=== PATIENT | female | born 1995 | race Caucasian/White ===

== ENCOUNTER 2023-11-30 11:38 | Observation (INO) ==
[2023-11-30 12:01] VITALS: BMI 41.3
--- NOTE | 2023-11-30 12:44 | DR.NAUSEAF ---
HPI Time Seen Time Seen by Provider: 11/30/23 12:42 Primary Care Physician Primary Care Physician: Matt Complaints Chief Complaint Doctors Comments: This patient complaining of nausea and vomiting she was seen in the [facility] yesterday and in [facility] yesterday and was discharged. Patient complaining today that she is having some midsternal ch est pain she states that she does have a history of CHF her informal waiter/waitress is Dr. Minor and her primary care from there is Matt. This patient has not followed up with either of those physicians. Chief Complaint:: Pt c/o n/v that started yesterday; she has been seen in [facility] ER and [facility] yesterday but states she is "not leaving until I get some answers today; I want to be admitted". Pt states she cannot hold down any fluids. C/o midsternal chest pain and "I think I have flooded out my heart"; when asked what she means by that, she states she has left VFD w/ repair, Dr. Serrano is her informal waiter/waitress. She has not called her PCP or her informal waiter/waitress today COVID-19 Coronavirus risk:travel/contact w/high risk person: No Has patient experienced Coronavirus symptoms: No Source History Provided: Patient Mode of Arrival Mode of Arrival: EMS Timing Onset of Chief Complaint: 11/29/23 PMH PMH Past Medical History: Yes Past Medical History: Anxiety and CHF Past Medical History Comment: chronic neck and back pain, bipolar Past Surgical History: Yes Surgical History: CABG/Valve Surgery, Ortho Surgery and Other Past Surgical History Comment: spinal fusion, VSD repair Family History History of Family Medical Conditions: Yes Family Medical History: Diabetes Mellitus, Cancer and Hypertension Social History Does patient currently use any type of tobacco product: No Have you used tobacco products in the last 12 months: No Type of Tobacco Use: None Does any household member use tobacco: No Alcohol Use: None Do you use any recreational Drugs:: No Lives With: Spouse Lives Where: Home Travel Risk Coronavirus risk:travel/contact w/high risk person: No Has patient experienced Coronavirus symptoms: No Infectious screening In the last 2 months have you had wt loss of >10#?: NO Have you had fever, night sweats or hemotysis?: No Have you traveled outside the country in the last 6 months?: No Isolation: Contact ROS Review of Systems Constitutional: Other (Nausea and vomiting and midsternal chest pain for 2 days she has a history of CHF she was seen to hospital yesterday for similar symptoms.) Eyes: No Symptoms Reported ENTM: No Symptoms Reported Respiratoy: No Symptoms Reported Cardiovascular: Chest Pain Gastrointestinal/Abdominal: Nausea and Vomiting Genitourinary: No Symptoms Reported Neurological: No Symptoms Reported Musculoskeletal: No Symptoms Reported Integumentary: No Symptoms Reported Hematologic/Lymphatic: No Symptoms Reported Endocrine: No Symptoms Reported Psychiatric: No Symptoms Reported PE Vital Signs Vitals: Vital Signs Temperature 99.4 F Pulse Rate 86 Pulse Rate 84 Pulse Rate 71 Pulse Rate 73 Pulse Rate 84 Pulse Rate 84 Pulse Rate 78 Pulse Rate 80 Pulse Rate 83 Pulse Rate 83 Pulse Rate 65 Pulse Rate 68 Pulse Rate 80 Pulse Rate 84 Pulse Rate 65 Pulse Rate 79 Pulse Rate 65 Pulse Rate 67 Pulse Rate 65 Pulse Rate 71 Respiratory Rate 31 Respiratory Rate 33 Respiratory Rate 28 Respiratory Rate 20 Respiratory Rate 30 Respiratory Rate 28 Respiratory Rate 28 Respiratory Rate 18 Respiratory Rate 17 Respiratory Rate 26 Respiratory Rate 27 Respiratory Rate 28 Respiratory Rate 36 Respiratory Rate 30 Respiratory Rate 36 Respiratory Rate 20 Respiratory Rate 24 Respiratory Rate 23 Respiratory Rate 17 Respiratory Rate 15 Respiratory Rate 22 Blood Pressure 127/82 Blood Pressure 127/58 Blood Pressure 136/79 Blood Pressure 136/79 Blood Pressure 136/79 Blood Pressure 132/67 Blood Pressure 121/72 Blood Pressure 131/76 Blood Pressure 134/65 Blood Pressure 142/68 Blood Pressure 141/70 O2 Sat by Pulse Oximetry 99 O2 Sat by Pulse Oximetry 98 O2 Sat by Pulse Oximetry 97 O2 Sat by Pulse Oximetry 95 O2 Sat by Pulse Oximetry 94 O2 Sat by Pulse Oximetry 94 O2 Sat by Pulse Oximetry 100 O2 Sat by Pulse Oximetry 98 O2 Sat by Pulse Oximetry 98 O2 Sat by Pulse Oximetry 95 O2 Sat by Pulse Oximetry 98 O2 Sat by Pulse Oximetry 99 O2 Sat by Pulse Oximetry 98 O2 Sat by Pulse Oximetry 100 O2 Sat by Pulse Oximetry 100 O2 Sat by Pulse Oximetry 98 O2 Sat by Pulse Oximetry 99 O2 Sat by Pulse Oximetry 100 O2 Sat by Pulse Oximetry 100 General Limitations: No Limitations General Appearance: Lethargic and In Distress (moderate distress) Head Head Exam: Normal Inspection, Atraumatic and Normocephalic Respiratory Respiratory Exam: Bilateral: Clear to Auscultation Cardiovascular Cardiovascular Exam: Regular Rate and Normal Rhythm Abdominal Exam Abdominal Exam: Normal Inspection, Soft and Hyperactive Bowel Sounds Rectal Rectal Exam: Deferred Extremities Extremities Exam: Normal Inspection and Full ROM Back Back Exam: Normal Inspection and Full ROM Neurologic Neurological Exam: Alert and CN II-XII Intact Psychiatric Psychiatric Exam: Agitated and Anxious Skin Skin Exam: Warm, Dry and Intact MDM Differential Diagnosis Differential Diagnosis: Considerations may Include:: Gastroenteritis and Other (Dehydration, intractable nausea and vomiting, congestive heart failure) COURSE Treatment Treatment: This patient remained relatively stable during the ER visit. We had to give her Zofran 4 mg IV for her nausea vomiting that did not do she also got a IM shot of Phenergan 25 mg for nausea that seem to help for a little while the patient further evaluation we did do a cardiac workup on this patient her BNP was only 5.1 EKG was normal sinus rhythm troponin was 9.9 we did do a chest x- ray was negative for any intrathoracic abnormality and we did a metabolic panel which her sodium was like 3 GFR was greater than 60 CBC was within normal range. This patient still had intractable nausea and vomiting here so we did give her Compazine 10 mg IV with some relief of her nausea and vomiting. We did contact Dr. Gutierrez that was on-call and gave this information about this patient and he stated we could admit her for intractable nausea and vomiting high pole kalemia. We did call the utilization review and they said we could put in for observation. The patient's family members and the patient was told of the intent and they was agreeable to the intent. For the hypokalemia the patient was started on an IV of normal saline with 10 mill equivalents of potassium going at 80 cc an hour ROR Labs Reviewed Laboratory Results Reviewed?: Yes 11/30/23 12:55 11/30/23 12:55 Laboratory: WBC 9.3 X10^3/uL (3.6-10.0) 11/30/23 12:55 RBC 4.26 X10^6/uL (3.5-5.4) 11/30/23 12:55 Hgb 12.7 g/dL (12.0-16.0) 11/30/23 12:55 Hct 36.9 % (36.0-47.0) 11/30/23 12:55 MCV 86.4 fL (80.0-100.0) 11/30/23 12:55 MCH 29.8 pg (27.0-34.0) 11/30/23 12:55 MCHC 34.5 g/dL (33.0-35.0) 11/30/23 12:55 RDW 13.6 % (11.6-16.5) 11/30/23 12:55 Plt Count 321 X10^3/uL (150.0-450.0) 11/30/23 12:55 MPV 7.3 fL (7.4-11.0) L 11/30/23 12:55 Neut % (Auto) 82.0 % (42.0-75.0) H 11/30/23 12:55 Lymph % (Auto) 7.7 % (21.0-51.0) L 11/30/23 12:55 [place] % (Auto) 9.8 % (0.0-13.0) 11/30/23 12:55 Eos % (Auto) 0.0 % (0.9-2.9) L 11/30/23 12:55 Baso % (Auto) 0.5 % (0.2-1.0) 11/30/23 12:55 Neut # (Auto) 7.6 x10^3/uL (2.2-4.8) H 11/30/23 12:55 Lymph # (Auto) 0.7 X10^3/uL (1.3-2.9) L 11/30/23 12:55 [place] # (Auto) 0.9 x10^3/uL (0.3-0.8) H 11/30/23 12:55 Eos # (Auto) 0.0 x10^3/uL (0.0-0.2) 11/30/23 12:55 Baso # (Auto) 0.0 X10^3/uL (0.0-0.1) 11/30/23 12:55 Absolute Nucleated RBC 0.0 /100WBC 11/30/23 12:55 Sodium 144 mmol/L (136-145) 11/30/23 12:55 Corrected Sodium 144 mmol/L (136-145) 11/30/23 12:55 Potassium 3.0 mmol/L (3.5-5.1) L 11/30/23 12:55 Chloride 104 mmol/L (98-107) 11/30/23 12:55 Carbon Dioxide 25.3 mmol/L (21-32) 11/30/23 12:55 BUN 16 mg/dL (7-18) 11/30/23 12:55 Creatinine 1.01 mg/dL (0.55-1.02) 11/30/23 12:55 Est GFR (MDRD) Af Amer > 60 (>60) 11/30/23 12:55 Est GFR (MDRD) Non-Af > 60 (>60) 11/30/23 12:55 Glucose 111 mg/dL (65-99) H 11/30/23 12:55 Calcium 9.1 mg/dL (8.5-10.1) 11/30/23 12:55 Corrected Calcium TNP 11/30/23 12:55 Total Bilirubin 1.80 mg/dL (0.2-1.0) H 11/30/23 12:55 AST 18 Units/L (15-37) 11/30/23 12:55 ALT 31 Units/L (12-78) 11/30/23 12:55 Alkaline Phosphatase 61 Units/L (46-116) 11/30/23 12:55 Creatine Kinase 130 Units/L (26-192) 11/30/23 12:55 Troponin I High Sens 9.9 ng/L (4.0-60.0) 11/30/23 12:55 B-Natriuretic Peptide 5.1 pg/mL (0-79) 11/30/23 12:55 Total Protein 7.6 g/dL (6.4-8.2) 11/30/23 12:55 Albumin 4.6 g/dL (3.4-5.0) 11/30/23 12:55 Globulin 3.0 g/dL (2.5-4.5) 11/30/23 12:55 Albumin/Globulin Ratio 1.5 Ratio (1.1-2.1) 11/30/23 12:55 Opioid Opioid Risk Tool Age (Javier box if 16-45): Yes History of Preadolescent Sexual Abuse: No Total: 1 Total Score Risk Category: Low Risk Copyright: Efrain CUENCA predicting aberrant behaviors Discharge Plan Diagnosis Discharge Problem: Dehydration, Intractable nausea and vomiting, Hypokalemia, Atypical chest pain Discharge Plan Patient Disposition: 09 ADMITTED INPATIENT Condition: Stable Orders to Discharge Patient Discharge Orders: Transfer (Routine); Ordered 10/25/24 Ordered By: Kehinde Mckeon
[2023-11-30] MEDS: PROTONIX INJ 40 MG VIAL IVP ONE (13:02)
[2023-11-30] MEDS: ZOFRAN INJ 4 MG VIAL IVP ONE (13:02)
--- NOTE | 2023-11-30 13:02 | EKG ---
Test Reason : chest pain Blood Pressure : */* mmHG Vent. Rate : 69 BPM Atrial Rate : 69 BPM P-R Int : 142 ms QRS Dur : 134 ms QT Int : 452 ms P-R-T Axes : 15 20 3 degrees QTc Int : 484 ms Normal sinus rhythm Right bundle branch block T wave abnormality, consider anterior ischemia Abnormal ECG When compared with ECG of 05-JUL-2022 10:58, Minimal criteria for Anterior infarct are no longer present T wave inversion more evident in Anterior leads Confirmed by Carson Zuniga MD ([id number]) on 12/01/2023 6:42:06 AM Referred By: Confirmed By: Carson Zuniga MD
[2023-11-30 13:05] LABS: BASOPHILS % (AUTO) 0.5 % (0.2-1.0); HEMATOCRIT 36.9 % (36.0-47.0); HEMOGLOBIN 12.7 g/dL (12.0-16.0); LYMPHOCYTES # (AUTO) 0.7 X10^3/uL (1.3-2.9); LYMPHOCYTES % (AUTO) 7.7 % (21.0-51.0); MEAN CORPUSCULAR HEMOGLOBIN 29.8 pg (27.0-34.0); MEAN CORPUSCULAR HGB CONC 34.5 g/dL (33.0-35.0); MEAN CORPUSCULAR VOLUME 86.4 fL (80.0-100.0); MEAN PLATELET VOLUME 7.3 fL (7.4-11.0); MONOCYTES # (AUTO) 0.9 x10^3/uL (0.3-0.8); MONOCYTES % (AUTO) 9.8 % (0.0-13.0); NEUTROPHILS # (AUTO) 7.6 x10^3/uL (2.2-4.8); PLATELET COUNT 321 X10^3/uL (150.0-450.0); RED BLOOD COUNT 4.26 X10^6/uL (3.5-5.4); RED CELL DISTRIBUTION WIDTH 13.6 % (11.6-16.5); WHITE BLOOD COUNT 9.3 X10^3/uL (3.6-10.0)
[2023-11-30 13:18] LABS: ALANINE AMINOTRANSFERASE 31 Units/L (12-78); ALBUMIN 4.6 g/dL (3.4-5.0); ALKALINE PHOSPHATASE 61 Units/L (46-116); ASPARTATE AMINO TRANSFERASE 18 Units/L (15-37); BLOOD UREA NITROGEN 16 mg/dL (7-18); CALCIUM 9.1 mg/dL (8.5-10.1); CARBON DIOXIDE 25.3 mmol/L (21-32); CHLORIDE 104 mmol/L (98-107); COR NA(FOR HYPERGLY) 144 mmol/L (136-145); CREATINE KINASE 130 Units/L (26-192); CREATININE 1.01 mg/dL (0.55-1.02); GLUCOSE 111 mg/dL (65-99); SODIUM 144 mmol/L (136-145); TOTAL PROTEIN 7.6 g/dL (6.4-8.2); eGFR NON BLACK RACES > 60 (>60)
--- NOTE | 2023-11-30 13:49 | RAD ---
EXAM:CHEST, 1 VIEWHISTORY:chest pain; TUBALCOMPARISON:Prior study or studies were utilized for comparison during interpretation with the most relevant dated 08/21/2022TECHNIQUE:CHEST, 1 VIEWFINDINGS:Chest:Lines and tubes: Cardiac leads overlie the chest.Mediastinum: Cardiac and mediastinal shadow is within normal limits for size and contour.Pulmonary vessels: No pulmonary vascular congestion.Lung wilkins: No suspicious airspace opacity.Pleura: No effusion. No pneumothorax.Bones and soft tissues: No acute osseous or soft tissue abnormality.IMPRESSION:1. No acute cardiopulmonary abnormalityTHIS IS AN ELECTRONICALLY VERIFIED FINAL [id number]/30/2023 1:45 PM - Electronically signed by Дмитрий Dominguez MD
[2023-11-30] MEDS: PHENERGAN INJ 25 MG IM ONE ×2 (13:59→17:40)
[2023-11-30] MEDS: NS + KCL 20 MEQ/L 1,000 ML IV SCH (15:04)
[2023-11-30] MEDS: COMPAZINE INJ IVP ONE (15:41)
[2023-11-30] MEDS: PROTONIX INJ 40 MG VIAL ONE (17:40)
[2023-11-30] MEDS: ZOFRAN INJ 4 MG VIAL ONE (17:40)
[2023-11-30] MEDS: COMPAZINE INJ ONE (17:41)
[2023-11-30] MEDS: COMPAZINE INJ IVP SCH (19:16)
[2023-11-30] MEDS: SEROquel TAB 25 mg PO PRN (19:33)
[2023-11-30] MEDS: LUMATEPERONE 42 MG PO SCH (19:36)
[2023-11-30] MEDS: COMPAZINE INJ IM PRN (19:57)
[2023-12-01] MEDS: AMBIEN PO PRN (00:10)
[2023-12-01 05:03] LABS: BASOPHILS % (AUTO) 0.5 % (0.2-1.0); EOSINOPHILS % (AUTO) 0.1 % (0.9-2.9); HEMATOCRIT 34.6 % (36.0-47.0); HEMOGLOBIN 11.7 g/dL (12.0-16.0); LYMPHOCYTES # (AUTO) 1.2 X10^3/uL (1.3-2.9); LYMPHOCYTES % (AUTO) 13.5 % (21.0-51.0); MEAN CORPUSCULAR HEMOGLOBIN 29.6 pg (27.0-34.0); MEAN CORPUSCULAR HGB CONC 33.9 g/dL (33.0-35.0); MEAN CORPUSCULAR VOLUME 87.2 fL (80.0-100.0); MEAN PLATELET VOLUME 7.6 fL (7.4-11.0); MONOCYTES % (AUTO) 11.4 % (0.0-13.0); NEUTROPHILS # (AUTO) 6.4 x10^3/uL (2.2-4.8); NEUTROPHILS % (AUTO) 74.5 % (42.0-75.0); PLATELET COUNT 276 X10^3/uL (150.0-450.0); RED BLOOD COUNT 3.96 X10^6/uL (3.5-5.4); RED CELL DISTRIBUTION WIDTH 13.9 % (11.6-16.5); WHITE BLOOD COUNT 8.6 X10^3/uL (3.6-10.0)
[2023-12-01 05:13] LABS: ALANINE AMINOTRANSFERASE 25 Units/L (12-78); ALKALINE PHOSPHATASE 51 Units/L (46-116); ASPARTATE AMINO TRANSFERASE 14 Units/L (15-37); BLOOD UREA NITROGEN 16 mg/dL (7-18); CALCIUM 8.5 mg/dL (8.5-10.1); CARBON DIOXIDE 24.8 mmol/L (21-32); CHLORIDE 109 mmol/L (98-107); CREATININE 0.95 mg/dL (0.55-1.02); GLUCOSE 89 mg/dL (65-99); MAGNESIUM 1.8 mg/dL (2.0-2.9); POTASSIUM 3.2 mmol/L (3.5-5.1); SODIUM 147 mmol/L (136-145); TOTAL PROTEIN 6.7 g/dL (6.4-8.2); eGFR NON BLACK RACES > 60 (>60)
[2023-12-01] MEDS ORDERED: CONSULT PHARMACY - POTASSIUM & MAGNESIUM XX SCH (06:00)
--- NOTE | 2023-12-01 07:45 | EKG ---
Test Reason : Chest pain Blood Pressure : */* mmHG Vent. Rate : 72 BPM Atrial Rate : 72 BPM P-R Int : 116 ms QRS Dur : 140 ms QT Int : 456 ms P-R-T Axes : -4 6 4 degrees QTc Int : 499 ms Normal sinus rhythm with sinus arrhythmia Right bundle branch block T wave abnormality, consider anterolateral ischemia Abnormal ECG When compared with ECG of 30-NOV-2023 12:47, T wave inversion now evident in Lateral leads Confirmed by Carson Zuniga MD ([id number]) on 12/02/2023 6:10:50 AM Referred By: Confirmed By: Carson Zuniga MD
[2023-12-01] MEDS: ZOLOFT PO SCH (08:07)
[2023-12-01 08:47] VITALS: RESP 20
[2023-12-01] MEDS ORDERED: MAG-OX TAB PO SCH (09:00)
[2023-12-01] MEDS ORDERED: K-DUR TAB 20 MEQ PO SCH (09:00)
[2023-12-01] MEDS: NS + KCL 20 MEQ/L 1,000 ML with MAGNESIUM SULFATE 50% INJ VIAL 1 G IV SCH (09:08)
[2023-12-01] MEDS: MORPHINE SULFATE INJ 2 MG INJ IVP PRN (09:10)
[2023-12-01 13:57] VITALS: BP 164/78; PULSE 68; TEMP 98.5; O2SAT 96
--- NOTE | 2023-12-05 13:22 | DR.SSS ---
SHORT STAY SUMMARY Admission Date Date of Admission: 11/30/23 Discharge Date Discharge Date: 12/01/23 Admission Diagnoses Admission Diagnoses: Nausea/vomitting Dehydration Chest pain rule out Hypokalemia Discharge Diagnoses Discharge Diagnoses: Nausea vomiting Dehydration Hypokalemia GERD Chief Complaint Chief Complaint: Nausea/vomiting, chest pain History of Present Illness History of Present Illness: Ms. Krishnamurthy is a 28-year-old female with a past medical history of chronic pain, anxiety, depression, insomnia, CAD, CHF presented with worsening nausea/vomiting along with chest pain. ER workup showed hypokalemia, troponin negative, chest x-ray negative. She was started on antiemetics and potassium replacement. She was admitted for further monitoring. Past Medical History Past Medical History: Anxiety, CHF and Depression Past Surgical History Surgical History: CABG/Valve Surgery and Ortho Surgery Allergies Allergies Allergy/AdvReac Type Severity Reaction Status Date / Time penicillin G Allergy Unknown Verified 12/03/23 11:43 Penicillins Allergy Verified 12/03/23 11:43 Medications Home Medications: penicillin G Allergy (Unknown, Verified 12/03/23 11:43) Penicillins Allergy (Verified 12/03/23 11:43) Family History Family Medical History: Diabetes Mellitus and Hypertension Social History Does patient currently use any type of tobacco product: No Have you used tobacco products in the last 12 months: No Type of Tobacco Use: None Does any household member use tobacco: No Alcohol Use: None Drug Use: None Review of Systems Constitutional: Weakness Eyes: No Symptoms Reported ENT: No Symptoms Reported Respiratory: No Symptoms Reported Cardiovascular: Chest Pain Gastrointestinal: Nausea and Vomiting Genitourinary: No Symptoms Reported Musculoskeletal: No Symptoms Reported Skin: No Symptoms Reported Neurological: No Symptoms Reported Physical Exam Vital Signs: Last Vital Signs Temp 98.5 F 12/01/23 12:00 Pulse 68 12/01/23 12:00 Resp 20 12/01/23 12:00 BP 164/78 12/01/23 12:00 Pulse Ox 96 12/01/23 12:00 O2 Del Method Room Air 12/01/23 12:00 O2 Flow Rate 2 12/01/23 08:00 FiO2 28 11/30/23 20:24 Oriented: Normal Throat: Normal Respiratory: Clear Throughout Cardiovascular: Normal Auscultation: Bowel Sounds: Normal Palpation: Normal Tenderness: Normal Skin: Normal Musculoskeletal: Normal Psychiatric: Anxiety Mood Description: Calm Affect: Normal Speech Pattern: Clear and Appropriate Labs Labs: Laboratory Last Values WBC 8.6 X10^3/uL (3.6-10.0) 12/01/23 04:31 RBC 3.96 X10^6/uL (3.5-5.4) 12/01/23 04:31 Hgb 11.7 g/dL (12.0-16.0) L 12/01/23 04:31 Hct 34.6 % (36.0-47.0) L 12/01/23 04:31 MCV 87.2 fL (80.0-100.0) 12/01/23 04:31 MCH 29.6 pg (27.0-34.0) 12/01/23 04:31 MCHC 33.9 g/dL (33.0-35.0) 12/01/23 04:31 RDW 13.9 % (11.6-16.5) 12/01/23 04:31 Plt Count 276 X10^3/uL (150.0-450.0) 12/01/23 04:31 MPV 7.6 fL (7.4-11.0) 12/01/23 04:31 Neut % (Auto) 74.5 % (42.0-75.0) 12/01/23 04:31 Lymph % (Auto) 13.5 % (21.0-51.0) L 12/01/23 04:31 [place] % (Auto) 11.4 % (0.0-13.0) 12/01/23 04:31 Eos % (Auto) 0.1 % (0.9-2.9) L 12/01/23 04:31 Baso % (Auto) 0.5 % (0.2-1.0) 12/01/23 04:31 Neut # (Auto) 6.4 x10^3/uL (2.2-4.8) H 12/01/23 04:31 Lymph # (Auto) 1.2 X10^3/uL (1.3-2.9) L 12/01/23 04:31 [place] # (Auto) 1.0 x10^3/uL (0.3-0.8) H 12/01/23 04:31 Eos # (Auto) 0.0 x10^3/uL (0.0-0.2) 12/01/23 04:31 Baso # (Auto) 0.0 X10^3/uL (0.0-0.1) 12/01/23 04:31 Absolute Nucleated RBC 0.1 /100WBC 12/01/23 04:31 Sodium 147 mmol/L (136-145) H 12/01/23 04:31 Corrected Sodium TNP 12/01/23 04:31 Potassium 3.2 mmol/L (3.5-5.1) L 12/01/23 04:31 Chloride 109 mmol/L (98-107) H 12/01/23 04:31 Carbon Dioxide 24.8 mmol/L (21-32) 12/01/23 04:31 BUN 16 mg/dL (7-18) 12/01/23 04:31 Creatinine 0.95 mg/dL (0.55-1.02) 12/01/23 04:31 Est GFR (MDRD) Af Amer > 60 (>60) 12/01/23 04:31 Est GFR (MDRD) Non-Af > 60 (>60) 12/01/23 04:31 Glucose 89 mg/dL (65-99) 12/01/23 04:31 Calcium 8.5 mg/dL (8.5-10.1) 12/01/23 04:31 Corrected Calcium TNP 12/01/23 04:31 Magnesium 1.8 mg/dL (2.0-2.9) L 12/01/23 04:31 Total Bilirubin 1.60 mg/dL (0.2-1.0) H 12/01/23 04:31 AST 14 Units/L (15-37) L 12/01/23 04:31 ALT 25 Units/L (12-78) 12/01/23 04:31 Alkaline Phosphatase 51 Units/L (46-116) 12/01/23 04:31 Creatine Kinase 130 Units/L (26-192) 11/30/23 12:55 Troponin I High Sens 9.4 ng/L (4.0-60.0) 12/01/23 07:49 B-Natriuretic Peptide 5.1 pg/mL (0-79) 11/30/23 12:55 Total Protein 6.7 g/dL (6.4-8.2) 12/01/23 04:31 Albumin 4.0 g/dL (3.4-5.0) 12/01/23 04:31 Globulin 2.7 g/dL (2.5-4.5) 12/01/23 04:31 Albumin/Globulin Ratio 1.5 Ratio (1.1-2.1) 12/01/23 04:31 Hospital Course Hospital Course: Patient was observed overnight on telemetry. She was feeling better with fluids and antiemetics. She denied any chest pain the following day. Her labs were monitored daily and electrolytes replaced as needed. Patient did not have any further episodes of vomiting. She was able to tolerate p.o. intake. She reports having EGD in the past and diagnosed with H. pylori. She has not followed up with Dr. Kirkland. Advised patient to follow-up with Dr. Kirkland. She was stable to be discharged home. She will follow-up with PCP as scheduled Discharge Medications Discharge Medications: Prescriptions: Discharge Disposition Discharge Disposition: To home Discharge Plan Discharge Plan Patient Disposition: 01 HOME, SELF-CARE Condition: Stable Health Concerns: Post Hospitalization: new medications and changes needed to prevent readmission or further decline. Pt educated and given instructions on all concerns. Plan of Treatment: Continue with present treatment and follow up plan. Pt is to keep follow up appointment as instructed and take medications as ordered. Prescription drug monitoring program results: PDMP reviewed and no concerns identified Prescriptions: No Action methocarbamol 500 mg tablet 500 mg PO QDAY PRN (Reason: muscle spasm) promethazine 12.5 mg tablet 12.5 mg PO Q6H PRN hydrocodone-acetaminophen 10-325 mg tablet 1 tab PO QDAY PRN lorazepam 0.5 mg tablet 0.5 mg PO Q12H PRN divalproex 500 mg tablet extended release 24 hr 500 mg PO BID sertraline 25 mg tablet 25 mg PO QDAY ondansetron 4 mg tablet,disintegrating 4 mg PO Q8H PRN (Reason: nausea/vomiting) quetiapine 50 mg tablet 75 mg PO QPM PRN baclofen 5 mg tablet 5 mg PO QDAY Caplyta 42 mg capsule 42 mg PO QPM Orders to Discharge Patient Discharge Orders: Discharge (Routine); Ordered 12/01/23 Ordered By: Cristela Vazquez Follow ups/Referrals Follow ups/Referrals: Matt,Watson, MD [Primary Care Provider] - 1 WEEK Instructions Instructions: Ondansetron tablets, Hypokalemia, Nausea and Vomiting, Adult, [id number], Dehydration, Adult, [id number], Promethazine tablets, [place] Diet Activity Restrictions/Additional Instructions: Follow up with Dr. Gutierrez in 1 week. Liquid diet and advance to a bland diet as tolerated. Stand Alone Forms: Excuse From Work or School, Post Hospital Follow Up Care
== END 2023-12-01 13:59 | disposition home or self-care (01) ==
LOC: ER 11:38 → MED/SURG 11:38
PROVIDERS: ADMIT Family Medicine; ATTEND Family Medicine
DX: E86.0 Dehydration; R94.31 Abnormal electrocardiogram [ECG] [EKG]; F41.8 Other specified anxiety disorders; E87.6 Hypokalemia; R07.89 Other chest pain; I25.10 Atherosclerotic heart disease of native coronary artery without angina pectoris; K21.9 Gastro-esophageal reflux disease without esophagitis; R11.2 Nausea with vomiting, unspecified

== ENCOUNTER 2023-12-04 09:54 | Observation (INO) ==
[2023-12-04] MEDS: NS 500 ML IV 500 ML IV ONE (10:57)
[2023-12-04 11:17] LABS: ALANINE AMINOTRANSFERASE 17 Units/L (12-78); ALBUMIN 4.2 g/dL (3.4-5.0); ALKALINE PHOSPHATASE 53 Units/L (46-116); ASPARTATE AMINO TRANSFERASE 12 Units/L (15-37); BLOOD UREA NITROGEN 11 mg/dL (7-18); CALCIUM 8.4 mg/dL (8.5-10.1); CARBON DIOXIDE 25.6 mmol/L (21-32); CHLORIDE 104 mmol/L (98-107); CREATININE 0.91 mg/dL (0.55-1.02); GLUCOSE 77 mg/dL (65-99); MAGNESIUM 1.6 mg/dL (2.0-2.9); SODIUM 143 mmol/L (136-145); TOTAL PROTEIN 6.9 g/dL (6.4-8.2); eGFR NON BLACK RACES > 60 (>60)
[2023-12-04] MEDS: K-RIDER 10 MEQ/100 ML WATER 10 MEQ/100 ML BAG IV ONE (11:31)
[2023-12-04] MEDS: NS 250 ML IV 25 ML IV PRN (11:31)
[2023-12-04] MEDS: TORADOL 30 MG VIAL IVP ONE (11:38)
[2023-12-04] MEDS: CONSULT PHARMACY - POTASSIUM & MAGNESIUM XX SCH (11:42)
--- NOTE | 2023-12-04 11:43 | DR.NAUSEAF ---
HPI Time Seen Time Seen by Provider: 12/04/23 11:32 Primary Care Physician Primary Care Physician: Matt HPI Comment HPI Comment: Patient states she was seen by her PCP today after being evaluated in the emergency room yesterday for nausea and vomiting. Patient states she has been able to keep nothing down and has been throwing up more since she left the doctor's office. Patient states they plan to have her see the surgeon next week but does not feel like she will be able to make it that far. Patient states her abdominal discomfort has gotten worse. Patient states the abdominal discomfort is generalized and worse when she throws up. Complaints Chief Complaint:: Patient states she was seen by her PCP today after being evaluated in ED yesterday for NV and hypoklemia. She reports she has continued to have nausea with "dry heaving" and unable to keep medications down. She said she was sent here by her PCP's [employer] COVID-19 Coronavirus risk:travel/contact w/high risk person: No Has patient experienced Coronavirus symptoms: No Source History Provided: Patient Mode of Arrival Mode of Arrival: Ambulatory Timing Onset of Chief Complaint: 11/29/23 PMH PMH Past Medical History: Yes Past Medical History: Anxiety, CHF and Depression Past Surgical History: Yes Surgical History: CABG/Valve Surgery and Ortho Surgery Family History History of Family Medical Conditions: Yes Family Medical History: Diabetes Mellitus, Cancer and Hypertension Social History Does patient currently use any type of tobacco product: No Have you used tobacco products in the last 12 months: No Type of Tobacco Use: None Does any household member use tobacco: No Alcohol Use: None Do you use any recreational Drugs:: No Lives With: Spouse Lives Where: Home Travel Risk Coronavirus risk:travel/contact w/high risk person: No Has patient experienced Coronavirus symptoms: No Infectious screening In the last 2 months have you had wt loss of >10#?: NO Have you had fever, night sweats or hemotysis?: No Have you traveled outside the country in the last 6 months?: No Isolation: Standard ROS Review of Systems Constitutional: No Symptoms Reported Eyes: No Symptoms Reported ENTM: No Symptoms Reported Respiratoy: No Symptoms Reported Cardiovascular: No Symptoms Reported Gastrointestinal/Abdominal: See HPI Genitourinary: No Symptoms Reported Neurological: No Symptoms Reported Musculoskeletal: No Symptoms Reported Integumentary: No Symptoms Reported Hematologic/Lymphatic: No Symptoms Reported Endocrine: No Symptoms Reported Psychiatric: No Symptoms Reported All Other Systems: Reviewed and Negative PE Vital Signs Vitals: Vital Signs Temperature 98.2 F Pulse Rate 85 Respiratory Rate 18 Respiratory Rate 16 Blood Pressure 136/73 Blood Pressure 144/85 O2 Sat by Pulse Oximetry 100 General Limitations: No Limitations General Appearance: Alert and In No Apparent Distress Head Head Exam: Normal Inspection Eyes Eye exam: Normal Appearance ENT ENT Exam: Normal Exam Neck Neck Exam: Normal Inspection Chest Chest Inspection: Normal Inspection Respiratory Respiratory Exam: Normal Lung Sounds Bilat Respiratory Exam: Bilateral: Clear to Auscultation Cardiovascular Cardiovascular Exam: Regular Rate and Normal Rhythm Abdominal Exam Abdominal Exam: Normal Inspection, Normal Bowel Sounds, Soft and Tenderness; negative Guarding, Rebound or Rigidity Abdominal Tenderness: Diffuse Rectal Rectal Exam: Deferred External Exam: Female: Deferred : Speculum Exam (Female): Deferred : Bimanual Exam (female): Deferred Extremities Extremities Exam: Normal Inspection Back Back Exam: Normal Inspection Neurologic Neurological Exam: Alert and Oriented X3 Psychiatric Psychiatric Exam: Normal Affect and Normal Mood Skin Skin Exam: Warm, Dry, Intact and Normal Color ROR Labs Reviewed 12/04/23 10:57 12/04/23 10:57 Laboratory: Sodium 143 mmol/L (136-145) 12/04/23 10:57 Corrected Sodium TNP 12/04/23 10:57 Potassium 2.8 mmol/L (3.5-5.1) L* 12/04/23 10:57 Chloride 104 mmol/L (98-107) 12/04/23 10:57 Carbon Dioxide 25.6 mmol/L (21-32) 12/04/23 10:57 BUN 11 mg/dL (7-18) 12/04/23 10:57 Creatinine 0.91 mg/dL (0.55-1.02) 12/04/23 10:57 Est GFR (MDRD) Af Amer > 60 (>60) 12/04/23 10:57 Est GFR (MDRD) Non-Af > 60 (>60) 12/04/23 10:57 Glucose 77 mg/dL (65-99) 12/04/23 10:57 Calcium 8.4 mg/dL (8.5-10.1) L 12/04/23 10:57 Corrected Calcium TNP 12/04/23 10:57 Magnesium 1.6 mg/dL (2.0-2.9) L 12/04/23 10:57 Total Bilirubin 2.30 mg/dL (0.2-1.0) H 12/04/23 10:57 AST 12 Units/L (15-37) L 12/04/23 10:57 ALT 17 Units/L (12-78) 12/04/23 10:57 Alkaline Phosphatase 53 Units/L (46-116) 12/04/23 10:57 Total Protein 6.9 g/dL (6.4-8.2) 12/04/23 10:57 Albumin 4.2 g/dL (3.4-5.0) 12/04/23 10:57 Globulin 2.7 g/dL (2.5-4.5) 12/04/23 10:57 Albumin/Globulin Ratio 1.6 Ratio (1.1-2.1) 12/04/23 10:57 Opioid Opioid Risk Tool Age (Javier box if 16-45): Yes History of Preadolescent Sexual Abuse: No Total: 1 Total Score Risk Category: Low Risk Copyright: Efrain CUENCA predicting aberrant behaviors Discharge Plan Diagnosis Discharge Problem: Intractable vomiting with nausea, Hypokalemia, Hypomagnesemia Discharge Plan Patient Disposition: 09 ADMITTED INPATIENT Condition: Stable Prescriptions: No Action methocarbamol 500 mg tablet 500 mg PO QDAY PRN (Reason: muscle spasm) promethazine 12.5 mg tablet 12.5 mg PO Q6H PRN hydrocodone-acetaminophen 10-325 mg tablet 1 tab PO QDAY PRN lorazepam 0.5 mg tablet 0.5 mg PO Q12H PRN divalproex 500 mg tablet extended release 24 hr 500 mg PO BID sertraline 25 mg tablet 25 mg PO QDAY ondansetron 4 mg tablet,disintegrating 4 mg PO Q8H PRN (Reason: nausea/vomiting) quetiapine 50 mg tablet 75 mg PO QPM PRN baclofen 5 mg tablet 5 mg PO QDAY Caplyta 42 mg capsule 42 mg PO QPM Health Concerns: Post Hospitalization: new medications and changes needed to prevent readmission or further decline. Pt educated and given instructions on all concerns. Plan of Treatment: Continue with present treatment and follow up plan. Pt is to keep follow up appointment as instructed and take medications as ordered. Orders to Discharge Patient Discharge Orders: Transfer (Routine); Ordered 12/04/23 Ordered By: Long Beck Follow ups/Referrals Follow ups/Referrals: Watson Gutierrez MD [Primary Care Provider] - 3 days Instructions Stand Alone Forms: Post Hospital Follow Up Care
[2023-12-04] MEDS ORDERED: PEPCID TAB 20 MG PO PRN (11:44)
[2023-12-04 11:50] LABS: BASOPHILS # (AUTO) 0.1 X10^3/uL (0.0-0.1); BASOPHILS % (AUTO) 0.6 % (0.2-1.0); EOSINOPHILS % (AUTO) 0.1 % (0.9-2.9); HEMATOCRIT 35.6 % (36.0-47.0); HEMOGLOBIN 12.6 g/dL (12.0-16.0); LYMPHOCYTES # (AUTO) 0.7 X10^3/uL (1.3-2.9); LYMPHOCYTES % (AUTO) 7.7 % (21.0-51.0); MEAN CORPUSCULAR HEMOGLOBIN 30.2 pg (27.0-34.0); MEAN CORPUSCULAR HGB CONC 35.3 g/dL (33.0-35.0); MEAN CORPUSCULAR VOLUME 85.7 fL (80.0-100.0); MEAN PLATELET VOLUME 7.9 fL (7.4-11.0); MONOCYTES # (AUTO) 0.6 x10^3/uL (0.3-0.8); MONOCYTES % (AUTO) 6.9 % (0.0-13.0); NEUTROPHILS # (AUTO) 7.9 x10^3/uL (2.2-4.8); NEUTROPHILS % (AUTO) 84.7 % (42.0-75.0); PLATELET COUNT 280 X10^3/uL (150.0-450.0); RED BLOOD COUNT 4.15 X10^6/uL (3.5-5.4); RED CELL DISTRIBUTION WIDTH 13.7 % (11.6-16.5); WHITE BLOOD COUNT 9.3 X10^3/uL (3.6-10.0)
[2023-12-04 12:04] LABS: AMYLASE 27 Units/L (25-115); LIPASE 26 Units/L (16-77)
[2023-12-04] MEDS: ZOFRAN INJ 4 MG VIAL IVP PRN (12:53)
[2023-12-04 14:43] LABS: POTASSIUM 2.8 mmol/L (3.5-5.1)
[2023-12-04] MEDS: PROTONIX INJ 40 MG VIAL IVP SCH (15:34)
[2023-12-04] MEDS: MORPHINE SULFATE INJ 4 MG IVP PRN (15:35)
[2023-12-04] MEDS: POTASSIUM CHLORIDE IV NR (15:39)
[2023-12-04] MEDS: SODIUM CHLORIDE IV NR (15:39)
[2023-12-04] MEDS: MAGNESIUM SULFATE 1 GRAM/100 mL PREMIX 1 G/100 ML BAG IV SCH (15:40)
[2023-12-04] MEDS: D5 1/2 NS 1,000 ML 1,000 ML IV ONE (15:40)
[2023-12-04] MEDS: D5 1/2 NS 1,000 ML 1,000 ML IV SCH (16:00)
[2023-12-04] MEDS: PHENERGAN INJ 25 MG IM PRN (18:46)
[2023-12-04 21:04] LABS: APPEARANCE,URINE HAZY (CLEAR); BILIRUBIN,URINE NEGATIVE (NEGATIVE); BLOOD/HEMOGLOBIN,URINE 1+ (NEGATIVE); COLOR,URINE DARK YELLOW (YELLOW); GLUCOSE, URINE NEGATIVE (NEGATIVE); KETONES,URINE 4+ (NEGATIVE); LEUKOCYTE ESTERASE ,URINE NEGATIVE (NEGATIVE); NITRITES,URINE POSITIVE (NEGATIVE); PROTEIN,URINE 2+ (NEGATIVE); UROBILINOGEN,URINE 2+ (NORMAL)
[2023-12-04 21:05] LABS: BACTERIA,URINE 3+ /HPF (NEGATIVE); RBC,URINE 0-2 /HPF (0-3); SQUAMOUS EPITHELIAL CELL,UR FEW /HPF (NEGATIVE); YEAST,URINE RARE /HPF (NEGATIVE)
[2023-12-05] MEDS: TORADOL 30 MG VIAL ONE (05:06)
--- NOTE | 2023-12-05 05:22 | EKG ---
Test Reason : Surgery Blood Pressure : */* mmHG Vent. Rate : 72 BPM Atrial Rate : 72 BPM P-R Int : 138 ms QRS Dur : 140 ms QT Int : 480 ms P-R-T Axes : 16 29 -13 degrees QTc Int : 525 ms Normal sinus rhythm Right bundle branch block Nonspecific T wave abnormality Abnormal ECG When compared with ECG of 03-DEC-2023 11:40, No significant change was found Confirmed by Carson Zuniga MD ([id number]) on 12/05/2023 7:38:22 AM Referred By: Confirmed By: Carson Zuniga MD
[2023-12-05 06:22] LABS: BASOPHILS % (AUTO) 0.6 % (0.2-1.0); EOSINOPHILS # (AUTO) 0.2 x10^3/uL (0.0-0.2); EOSINOPHILS % (AUTO) 2.7 % (0.9-2.9); HEMATOCRIT 33.1 % (36.0-47.0); HEMOGLOBIN 11.8 g/dL (12.0-16.0); LYMPHOCYTES # (AUTO) 0.9 X10^3/uL (1.3-2.9); LYMPHOCYTES % (AUTO) 14.1 % (21.0-51.0); MEAN CORPUSCULAR HEMOGLOBIN 30.6 pg (27.0-34.0); MEAN CORPUSCULAR HGB CONC 35.6 g/dL (33.0-35.0); MEAN CORPUSCULAR VOLUME 85.8 fL (80.0-100.0); MEAN PLATELET VOLUME 7.7 fL (7.4-11.0); MONOCYTES # (AUTO) 0.8 x10^3/uL (0.3-0.8); NEUTROPHILS # (AUTO) 4.5 x10^3/uL (2.2-4.8); NEUTROPHILS % (AUTO) 69.6 % (42.0-75.0); PLATELET COUNT 238 X10^3/uL (150.0-450.0); RED BLOOD COUNT 3.86 X10^6/uL (3.5-5.4); RED CELL DISTRIBUTION WIDTH 13.9 % (11.6-16.5); WHITE BLOOD COUNT 6.5 X10^3/uL (3.6-10.0)
[2023-12-05 06:46] LABS: ALANINE AMINOTRANSFERASE 14 Units/L (12-78); ALBUMIN 3.3 g/dL (3.4-5.0); ALKALINE PHOSPHATASE 42 Units/L (46-116); ASPARTATE AMINO TRANSFERASE 8 Units/L (15-37); BLOOD UREA NITROGEN 9 mg/dL (7-18); CALCIUM 7.9 mg/dL (8.5-10.1); CHLORIDE 106 mmol/L (98-107); COR CA(FOR HYPOALB) 8.5 mg/dL (8.5-10.1); CREATININE 0.87 mg/dL (0.55-1.02); GLUCOSE 106 mg/dL (65-99); SODIUM 144 mmol/L (136-145); TOTAL PROTEIN 5.7 g/dL (6.4-8.2); eGFR NON BLACK RACES > 60 (>60)
[2023-12-05] MEDS ORDERED: CONSULT PHARMACY - POTASSIUM & MAGNESIUM XX SCH (07:00)
[2023-12-05] MEDS: LR 1,000 ML IV 1,000 ML IV ONE (07:22)
--- NOTE | 2023-12-05 07:35 | RAD ---
EXAM: Portable chest HISTORY: Congestive heart failure, anxiety COMPARISON: 11/30/2023 FINDINGS: Heart is mildly enlarged. No congestive heart failure is noted. Claire are normal. Lung wilkins are clear. No pleural effusions or pneumothoraces identified. Bony thorax is unremarkable. IMPRESSION: Mild cardiomegaly without congestive heart failure Lungs clear THIS IS AN ELECTRONICALLY VERIFIED FINAL REPORT 12/05/2023 7:31 AM - Electronically signed by Tony Trinidad MD
[2023-12-05] MEDS ORDERED: POTASSIUM CHL 60 MEQ/NS 0.45% 500 ML *CMPD 60 MEQ/500 ML BAG IV NR (08:00)
[2023-12-05] MEDS: DIPRIVAN VIAL 20 ML ONE (08:10)
[2023-12-05] MEDS: XYLOCAINE 2 % (PLAIN) ONE (08:10)
--- NOTE | 2023-12-05 09:48 | DR.H&P ---
H&P History & Physical for Day of: H&P Date: 12/05/23 Chief Complaint Chief Complaint: worsening N/V, unable to tolerate PO intake History of Present Illness History of Present Illness: Ms Krishnamurthy is a 28y/o female with a PMH of GERD, H.Pylori gastritis, chronic pain syndrome, anxiety, depression and insomnia has had recurrent admissions and ER visits due to intractable N/V and chest pain. She was recently discharged but states she was not able to keep anything down. She was scheduled to see Dr Kirkland next week but could not wait so came to the ER for evaluation. ER work up showed low mag and K. She was started on IV fluids and electrolyte replacement. She was given anti-emetics and pain control. She was kept NPO and Dr Kirkland was consulted. Patient underwent EGD this morning, found to have gastritis. Labs/imaging reviewed: -WBC 6.5 Hgb 11.8 K 3.0 Mag 2.0 BUN/Cr 9/0.87 Trop (-) -CXR: cardiomegaly Plan: follow surgery recommendations, gallbladder US pending. Continue hydration, replace electrolytes. Continue anti-emetics. Continue protonix and carafate. Diet as per surgery. Resume home medications. Monitor AM labs/imaging. Past Medical History Past Medical History: Anxiety, CHF and Depression Past Surgical History Surgical History: CABG/Valve Surgery and Ortho Surgery Family History Family Medical History: Diabetes Mellitus and Hypertension Social History Does patient currently use any type of tobacco product: No Have you used tobacco products in the last 12 months: No Type of Tobacco Use: None Does any household member use tobacco: No Alcohol Use: None Drug Use: None Medications Home Medications: Home Medications Medication Instructions Recorded Confirmed Type baclofen 5 mg tablet 5 mg PO QDAY hiccoughs 12/04/23 12/04/23 History divalproex 500 mg tablet,extended 500 mg PO BID 12/04/23 12/04/23 History release 24 hr hydrocodone 10 mg-acetaminophen 1 tab PO QDAY PRN 12/04/23 12/04/23 History 325 mg tablet lorazepam 0.5 mg tablet 0.5 mg PO Q12H PRN 12/04/23 12/04/23 History lumateperone 42 mg capsule 42 mg PO QPM 12/04/23 12/04/23 History (Caplyta) methocarbamol 500 mg tablet 500 mg PO QDAY PRN muscle spasm 12/04/23 12/04/23 History ondansetron 4 mg disintegrating 4 mg PO Q8H PRN nausea/vomiting 12/04/23 12/04/23 History tablet promethazine 12.5 mg tablet 12.5 mg PO Q6H PRN 12/04/23 12/04/23 History quetiapine 50 mg tablet 75 mg PO QPM PRN 12/04/23 12/04/23 History sertraline 25 mg tablet 25 mg PO QDAY 12/04/23 12/04/23 History Allergies Allergies Allergy/AdvReac Type Severity Reaction Status Date / Time penicillin G Allergy Unknown Verified 12/03/23 11:43 Penicillins Allergy Verified 12/03/23 11:43 Labs 12/05/23 06:03 12/05/23 06:03 Labs: 12/04/23 20:35 Urine,Clean Catch Urine Culture - Preliminary Laboratory WBC 6.5 X10^3/uL (3.6-10.0) 12/05/23 06:03 RBC 3.86 X10^6/uL (3.5-5.4) 12/05/23 06:03 Hgb 11.8 g/dL (12.0-16.0) L 12/05/23 06:03 Hct 33.1 % (36.0-47.0) L 12/05/23 06:03 MCV 85.8 fL (80.0-100.0) 12/05/23 06:03 MCH 30.6 pg (27.0-34.0) 12/05/23 06:03 MCHC 35.6 g/dL (33.0-35.0) H 12/05/23 06:03 RDW 13.9 % (11.6-16.5) 12/05/23 06:03 Plt Count 238 X10^3/uL (150.0-450.0) 12/05/23 06:03 MPV 7.7 fL (7.4-11.0) 12/05/23 06:03 Neut % (Auto) 69.6 % (42.0-75.0) 12/05/23 06:03 Lymph % (Auto) 14.1 % (21.0-51.0) L 12/05/23 06:03 [place] % (Auto) 13.0 % (0.0-13.0) 12/05/23 06:03 Eos % (Auto) 2.7 % (0.9-2.9) 12/05/23 06:03 Baso % (Auto) 0.6 % (0.2-1.0) 12/05/23 06:03 Neut # (Auto) 4.5 x10^3/uL (2.2-4.8) 12/05/23 06:03 Lymph # (Auto) 0.9 X10^3/uL (1.3-2.9) L 12/05/23 06:03 [place] # (Auto) 0.8 x10^3/uL (0.3-0.8) 12/05/23 06:03 Eos # (Auto) 0.2 x10^3/uL (0.0-0.2) 12/05/23 06:03 Baso # (Auto) 0.0 X10^3/uL (0.0-0.1) 12/05/23 06:03 Absolute Nucleated RBC 0.0 /100WBC 12/05/23 06:03 Sodium 144 mmol/L (136-145) 12/05/23 06:03 Corrected Sodium TNP 12/05/23 06:03 Potassium 3.0 mmol/L (3.5-5.1) L 12/05/23 06:03 Chloride 106 mmol/L (98-107) 12/05/23 06:03 Carbon Dioxide 28.0 mmol/L (21-32) 12/05/23 06:03 BUN 9 mg/dL (7-18) 12/05/23 06:03 Creatinine 0.87 mg/dL (0.55-1.02) 12/05/23 06:03 Est GFR (MDRD) Af Amer > 60 (>60) 12/05/23 06:03 Est GFR (MDRD) Non-Af > 60 (>60) 12/05/23 06:03 Glucose 106 mg/dL (65-99) H 12/05/23 06:03 Calcium 7.9 mg/dL (8.5-10.1) L 12/05/23 06:03 Corrected Calcium 8.5 mg/dL (8.5-10.1) 12/05/23 06:03 Magnesium 2.0 mg/dL (2.0-2.9) 12/05/23 06:03 Total Bilirubin 1.50 mg/dL (0.2-1.0) H 12/05/23 06:03 AST 8 Units/L (15-37) L 12/05/23 06:03 ALT 14 Units/L (12-78) 12/05/23 06:03 Alkaline Phosphatase 42 Units/L (46-116) L 12/05/23 06:03 Total Protein 5.7 g/dL (6.4-8.2) L 12/05/23 06:03 Albumin 3.3 g/dL (3.4-5.0) L 12/05/23 06:03 Globulin 2.4 g/dL (2.5-4.5) L 12/05/23 06:03 Albumin/Globulin Ratio 1.4 Ratio (1.1-2.1) 12/05/23 06:03 Amylase 27 Units/L (25-115) 12/04/23 10:57 Lipase 26 Units/L (16-77) 12/04/23 10:57 Specimen Type Clean catch urine 12/04/23 20:35 Urine Color Dark yellow (YELLOW) 12/04/23 20:35 Urine Appearance Hazy (CLEAR) 12/04/23 20:35 Urine pH 6.0 (5.0 - 8.0) 12/04/23 20:35 Ur Specific [place] 1.025 (1.000-1.030) 12/04/23 20:35 Urine Protein 2+ (NEGATIVE) 12/04/23 20:35 Urine Glucose (UA) Negative (NEGATIVE) 12/04/23 20:35 Urine Ketones 4+ (NEGATIVE) 12/04/23 20:35 Urine Blood 1+ (NEGATIVE) 12/04/23 20:35 Urine Nitrite Positive (NEGATIVE) 12/04/23 20:35 Urine Bilirubin Negative (NEGATIVE) 12/04/23 20:35 Urine Urobilinogen 2+ (NORMAL) 12/04/23 20:35 Ur Leukocyte Esterase Negative (NEGATIVE) 12/04/23 20:35 Urine RBC 0-2 /HPF (0-3) 12/04/23 20:35 Urine WBC 5-10 /HPF (0-5) A 12/04/23 20:35 Ur Squamous Epith Cells Few /HPF (NEGATIVE) 12/04/23 20:35 Urine Bacteria 3+ /HPF (NEGATIVE) 12/04/23 20:35 Urine Mucus Many /HPF (NEGATIVE) 12/04/23 20:35 Urine Yeast Rare /HPF (NEGATIVE) 12/04/23 20:35 Ur Culture Indicated? Yes/culture set up 12/04/23 20:35 Review of Systems Constitutional: Weakness Eyes: No Symptoms Reported ENT: No Symptoms Reported Respiratory: No Symptoms Reported Cardiovascular: Chest Pain Gastrointestinal: Nausea and Vomiting Genitourinary: No Symptoms Reported Musculoskeletal: No Symptoms Reported Skin: No Symptoms Reported Neurological: No Symptoms Reported Physical Exam Vital Signs: Vital Signs Temperature 97.9 F Pulse Rate [Bilateral Radial] 72 Pulse Rate [Bilateral Radial] 63 Respiratory Rate 19 Respiratory Rate 15 Blood Pressure [Right Arm] 123/61 Blood Pressure [Left Arm] 138/80 O2 Sat by Pulse Oximetry 99 O2 Sat by Pulse Oximetry 98 Oriented: Normal Eyes: Normal Throat: Normal Respiratory: Clear Throughout Cardiovascular: Normal Auscultation: Bowel Sounds: Normal Palpation: Normal Tenderness: Normal Skin: Normal Musculoskeletal: Normal Psychiatric: Normal Mood Description: Calm Affect: Normal Speech Pattern: Clear and Appropriate Assessment/Plan (1) Gastritis: Qualifiers: Gastritis type: unspecified gastritis Chronicity: chronic Gastritis bleeding: without bleeding Qualified Code(s): K29.50 - Unspecified chronic gastritis without bleeding Status: Acute (2) Intractable vomiting with nausea: Status: Acute (3) Hypokalemia: Status: Acute (4) Hypomagnesemia: Status: Acute (5) Dehydration: Status: Acute (6) Anxiety: Status: Acute (7) GERD (gastroesophageal reflux disease): Qualifiers: Esophagitis presence: esophagitis presence not specified Qualified Code(s): K21.9 - Gastro-esophageal reflux disease without esophagitis Status: None Review H&P Reviewed: Yes Patient was examined?: Yes
[2023-12-05] MEDS: POTASSIUM CHL 60 MEQ/NS 0.45% 500 ML *CMPD 60 MEQ/500 ML BAG IV NR (14:00)
[2023-12-05] MEDS: TYLENOL 325 MG TAB PO PRN (14:00)
[2023-12-05] MEDS: CARAFATE PO SCH (14:01)
--- NOTE | 2023-12-05 16:29 | US ---
EXAM:GALL BLADDERHISTORY:N/V; N&V UnavailableNausea and vomitingCOMPARISON:None.TECHNIQUE:Multip le ng scale and color flow Doppler images of the right upper quadrant were obtained.FINDINGS:The liver is normal in echotexture and normal in size.No focal intraparenchymal mass or intrahepatic biliary ductal dilatation is observed. The gallbladder does not demonstrate cholelithiasis or layering sludge.The common bile duct is normal in size for age, measuring 3 mm. No pericholecystic fluid or gallbladder wall thickening is observed.The right kidney is normal in size without focal parenchymal mass or nephrolithiasis. The right kidney measurers 11 x 5 cm. No hydronephrosis or perirenal fluid can be observed.The pancreatic head and body are unremarkable. The pancreatic tail is largely obscured by overlying bowel gas.IMPRESSION:Unremarkable examination of the right upper quadrant.THIS IS AN ELECTRONICALLY VERIFIED FINAL [id number]/05/2023 4:26 PM - Electronically signed by Diaz Anderson MD
[2023-12-05] MEDS ORDERED: LIORESAL PO SCH (20:00)
[2023-12-05] MEDS: MILK OF MAGNESIA PO SCH (20:19)
[2023-12-05] MEDS: COLACE CAP 100 MG PO SCH (20:19)
[2023-12-05] MEDS: SEROquel TAB 25 mg PO SCH (20:19)
[2023-12-05] MEDS: PATIENT'S HOME MEDICATION PO SCH (20:22)
[2023-12-05 21:23] VITALS: BMI 40.9
[2023-12-05] MEDS ORDERED: LIORESAL PO PRN (21:24)
[2023-12-06 05:35] LABS: BASOPHILS # (AUTO) 0.1 X10^3/uL (0.0-0.1); BASOPHILS % (AUTO) 0.9 % (0.2-1.0); EOSINOPHILS # (AUTO) 0.2 x10^3/uL (0.0-0.2); EOSINOPHILS % (AUTO) 3.1 % (0.9-2.9); HEMATOCRIT 30.7 % (36.0-47.0); HEMOGLOBIN 10.7 g/dL (12.0-16.0); LYMPHOCYTES # (AUTO) 1.1 X10^3/uL (1.3-2.9); LYMPHOCYTES % (AUTO) 16.6 % (21.0-51.0); MEAN CORPUSCULAR HEMOGLOBIN 30.1 pg (27.0-34.0); MEAN CORPUSCULAR VOLUME 86.1 fL (80.0-100.0); MEAN PLATELET VOLUME 7.9 fL (7.4-11.0); MONOCYTES # (AUTO) 0.7 x10^3/uL (0.3-0.8); MONOCYTES % (AUTO) 10.8 % (0.0-13.0); NEUTROPHILS # (AUTO) 4.4 x10^3/uL (2.2-4.8); NEUTROPHILS % (AUTO) 68.6 % (42.0-75.0); PLATELET COUNT 250 X10^3/uL (150.0-450.0); RED BLOOD COUNT 3.57 X10^6/uL (3.5-5.4); RED CELL DISTRIBUTION WIDTH 13.7 % (11.6-16.5); WHITE BLOOD COUNT 6.4 X10^3/uL (3.6-10.0)
[2023-12-06 06:04] LABS: ALANINE AMINOTRANSFERASE 12 Units/L (12-78); ALBUMIN 2.9 g/dL (3.4-5.0); ALKALINE PHOSPHATASE 39 Units/L (46-116); ASPARTATE AMINO TRANSFERASE 8 Units/L (15-37); BLOOD UREA NITROGEN 4 mg/dL (7-18); CALCIUM 7.9 mg/dL (8.5-10.1); CHLORIDE 108 mmol/L (98-107); COR CA(FOR HYPOALB) 8.8 mg/dL (8.5-10.1); CREATININE 0.82 mg/dL (0.55-1.02); GLUCOSE 98 mg/dL (65-99); MAGNESIUM 1.8 mg/dL (2.0-2.9); POTASSIUM 3.2 mmol/L (3.5-5.1); SODIUM 144 mmol/L (136-145); TOTAL PROTEIN 5.3 g/dL (6.4-8.2); eGFR NON BLACK RACES > 60 (>60)
[2023-12-06] MEDS ORDERED: CONSULT PHARMACY - POTASSIUM & MAGNESIUM XX SCH (07:00)
[2023-12-06] MEDS ORDERED: ROBAXIN PO SCH (09:00)
[2023-12-06] MEDS: K-DUR TAB 20 MEQ PO SCH (09:17)
[2023-12-06] MEDS: MAG-OX TAB PO SCH (09:17)
[2023-12-06] MEDS: ROBAXIN PO SCH (09:17)
[2023-12-06] MEDS: NORCO 10/325 TAB PO PRN (09:18)
[2023-12-06 10:35] VITALS: BP 116/77; PULSE 77; RESP 20; TEMP 98.9; O2SAT 92
[2023-12-06] MEDS ORDERED: ZOLOFT PO SCH (21:00)
== END 2023-12-06 10:30 | disposition home or self-care (01) ==
LOC: ICU 09:54 → ER 09:54 → ICU 12:24
PROVIDERS: ADMIT Family Medicine; ATTEND Family Medicine